=== PATIENT | female | born 1995 | race African-American/Black ===

== ENCOUNTER 2017-11-28 14:03 | Emergency (ER) | payer SELFPAY ==
[~2017-11-28] VITALS: Ht 160 cm; Wt 61.4 kg
[~2017-11-28 14:03] MED LIST: NORCO 325 MG-51 TAB PO; PEN-VEE K500 MG PO
[2017-11-28 14:06] VITALS: BP 136/77; TEMP 97.5
[2017-11-28] MEDS ORDERED: ADVIL200 MG PO (14:33)
[2017-11-28] MEDS ORDERED: POLYMYXIN B/TRIMETH OD (14:45)
[2017-11-28] MEDS ORDERED: CEPHALEXIN500 M1 PO (14:45)
[2017-11-28 14:52] VITALS: PULSE 75
== END 2017-11-28 14:57 | disposition home or self-care (01) ==
LOC: COL.ER 14:03
DX: H00.021 Hordeolum internum right upper eyelid (principal)

== ENCOUNTER 2018-08-06 11:56 | Emergency (ER) | payer BC ==
[~2018-08-06] VITALS: Ht 160 cm; Wt 61.6 kg
[~2018-08-06 11:56] MED LIST changes: +ADVIL200 MG PO; +CEPHALEXIN500 M1 PO; +POLYMYXIN B/TRIMETH OD; +ULTRAM 50MG TAB50 MG PO
[2018-08-06 11:59] VITALS: BP 152/89; TEMP 98
[2018-08-06] MEDS ORDERED: AMOXICILLIN 50500 MG PO (12:46)
[2018-08-06 13:04] VITALS: PULSE 79
== END 2018-08-06 13:04 | disposition home or self-care (01) ==
LOC: COL.ER 11:56
DX: K02.9 Dental caries, unspecified (principal); R00.2 Palpitations; F17.210 Nicotine dependence, cigarettes, uncomplicated; Z90.89 Acquired absence of other organs

== ENCOUNTER 2019-04-30 12:19 | Emergency (ER) | payer BC ==
[~2019-04-30] VITALS: Ht 160 cm; Wt 61.4 kg
[~2019-04-30 12:19] MED LIST changes: +AMOXICILLIN 50500 MG PO
[2019-04-30 12:29] VITALS: BP 108/61; PULSE 86; TEMP 97.2
[2019-04-30] MEDS ORDERED: FLEXERIL 1010 MG/TAB PO (12:57)
== END 2019-04-30 14:00 | disposition home or self-care (01) ==
LOC: COL.ER 12:19
DX: S33.5XXA Sprain of ligaments of lumbar spine, initial encounter (principal); F17.210 Nicotine dependence, cigarettes, uncomplicated; X50.0XXA Overexertion from strenuous movement or load, initial encounter; Y99.0 Civilian activity done for income or pay
CPT/HCPCS: J1885

== ENCOUNTER 2019-10-31 12:34 | Emergency (ER) | payer BC ==
[~2019-10-31] VITALS: Ht 160 cm; Wt 53.6 kg
[~2019-10-31 12:34] MED LIST changes: +FLEXERIL 1010 MG/TAB PO
[2019-10-31 13:07] VITALS: BP 133/72; PULSE 94; TEMP 98.2
[2019-10-31] MEDS ORDERED: ATIVAN 1MG T1 MG/TAB PO (13:10)
[2019-10-31] MEDS ORDERED: AMOXICILLIN 8751 TAB PO (13:10)
[2019-10-31] MEDS ORDERED: VRAYLAR3 MG PO (13:11)
== END 2019-10-31 13:24 | disposition home or self-care (01) ==
LOC: COL.ER 12:34
DX: K02.9 Dental caries, unspecified (principal); F31.9 Bipolar disorder, unspecified

== ENCOUNTER 2020-03-19 14:45 | Emergency (ER) | payer BC ==
[~2020-03-19] VITALS: Ht 160 cm; Wt 54.5 kg
[~2020-03-19 14:45] MED LIST changes: +AMOXICILLIN 8751 TAB PO; +ATIVAN 1MG T1 MG/TAB PO; +VRAYLAR3 MG PO
[2020-03-19 15:27] VITALS: BP 119/88; TEMP 98.7
[2020-03-19 16:24] LABS: COLLECTION METHOD CLEAN CATCH
[2020-03-19 16:34] LABS: MUCOUS Present /lpf; PH 6 (5-8); SQUAMOUS EPITHELIAL 0-2 /hpf; URINE APPEARANCE Clear; URINE BACTERIA None Seen /hpf; URINE BILIRUBIN Negative (NEGATIVE); URINE BLOOD Negative (NEGATIVE); URINE COLOR Yellow; URINE GLUCOSE Negative (NEGATIVE); URINE KETONE Negative (NEGATIVE); URINE LEUKOCYTE ESTERASE Negative (NEGATIVE); URINE NITRATE Negative (NEGATIVE); URINE PROTEIN(semi-quant) Negative (NEGATIVE); URINE RBC 0-2 /hpf; URINE UROBILINOGEN Negative (NEGATIVE)
[2020-03-19] MEDS ORDERED: FLEXERIL 1010 MG/TAB PO (16:57)
[2020-03-19 17:10] VITALS: PULSE 68
== END 2020-03-19 17:10 | disposition home or self-care (01) ==
LOC: COL.ER 14:45
PROVIDERS: Nurse Practitioner
DX: S39.012A Strain of muscle, fascia and tendon of lower back, initial encounter (principal); F31.9 Bipolar disorder, unspecified; F41.9 Anxiety disorder, unspecified; F17.210 Nicotine dependence, cigarettes, uncomplicated; Z90.89 Acquired absence of other organs; X50.1XXA Overexertion from prolonged static or awkward postures, initial encounter
CPT/HCPCS: J1885